=== PATIENT | female | born 1985 | race Caucasian/White ===

== ENCOUNTER 2019-06-09 18:08 | Emergency (ER) | payer MEDICAID ==
[~2019-06-09] VITALS: Ht 177.8 cm; Wt 95.0 kg
[2019-06-09 19:25] VITALS: BP 117/54
== END 2019-06-09 20:15 | disposition home or self-care (01) ==
LOC: ED 18:32
DX: O26.891 Other specified pregnancy related conditions, first trimester (principal); R10.2 Pelvic and perineal pain; Z3A.12 12 weeks gestation of pregnancy
CPT/HCPCS: 36415; 80053; 81001; 84702; 85025; 86901; 87086; 96372; 99283; J2550